=== PATIENT | male | born 1990 | race Caucasian/White ===

== ENCOUNTER 2017-12-22 11:59 | Emergency (ER) | payer MEDICAID, OTHER ==
[~2017-12-22] VITALS: Ht 175.3 cm; Wt 65.9 kg
[2017-12-22 12:42] LABS: CLARITY,URINE CLOUDY (Clear); COLOR,URINE RED (Yellow); GLUCOSE, URINE NEGATIVE (Neg); KETONES,URINE TRACE mg/dl (Neg); LEUKOCYTE ESTERASE ,URINE NEGATIVE (Neg); NITRITES, URINE NEGATIVE (Neg); OCCULT BLOOD,URINE LARGE (Neg); PH,URINE 8.5 (4.8-8.0); PROTEIN,URINE 30 mg/dl (Neg); UA COLLECTION TYPE VOIDED; UROBILINOGEN,URINE 0.2 E.U/dL (0.2-1.0)
[2017-12-22] MEDS ORDERED: morphine 4 MG/ML inj SYRINge IV PRN (12:45)
[2017-12-22] MEDS ORDERED: ondansetron/PF 4mg/2ml inj IV ONE (12:45)
[2017-12-22] MEDS ORDERED: normal saline 1000ML IV soln IVB ONE (12:45)
[2017-12-22] MEDS ORDERED: ketorolac trometh. 30mg/ml inj. IV ONE (12:45)
[2017-12-22 12:49] LABS: BACTERIA,URINE NONE SEEN /HPF (Neg); MUCUS STRANDS NONE SEEN /LPF (Neg); RBC,URINE TNTC /HPF (0-2); SQUAMOUS EPITHELIAL CELL,UR NONE SEEN /LPF (FEW)
[2017-12-22 13:06] LABS: BASOPHILS % (AUTO) 0.4 % (0-1); EOSINOPHILS # (AUTO) 0.1 X10'3 (0-0.9); EOSINOPHILS % (AUTO) 0.7 % (0-6); HEMATOCRIT 44.3 % (42.0-52.0); HEMOGLOBIN 15.2 g/dl (14.0-17.9); LYMPHOCYTES # (AUTO) 1.2 X10'3 (1.1-4.8); LYMPHOCYTES % (AUTO) 11.3 % (21-51); MEAN CORPUSCULAR HEMOGLOBIN 30.6 PG (27.0-31.0); MEAN CORPUSCULAR HGB CONC 34.3 % (33.0-36.5); MEAN CORPUSCULAR VOLUME 89.2 FL (78-98); MEAN PLATELET VOLUME 7.4 FL (7.4-10.4); MONOCYTES # (AUTO) 0.6 X10'3 (0-0.9); MONOCYTES % (AUTO) 5.7 % (2-12); NEUTROPHILS # (AUTO) 8.9 X10'3 (1.8-7.7); NEUTROPHILS % (AUTO) 81.9 % (42-75); PLATELET COUNT 325 X10'3 (140-440); RED BLOOD COUNT 4.96 X10'6 (4.70-6.10); RED CELL DISTRIBUTION WIDTH 12.7 % (11.5-14.5); WHITE BLOOD COUNT 10.9 X10'3 (4.5-11.0)
[2017-12-22 13:20] LABS: ALANINE AMINOTRANSFERASE 29 U/L (12-78); ALKALINE PHOSPHATASE 74 IU/L (46-116); ANION GAP 14 (8-16); ASPARTATE AMINO TRANSFERASE 29 U/L (10-37); BILIRUBIN,TOTAL 0.4 MG/DL (0.1-1.0); BLOOD UREA NITROGEN 16 MG/DL (7-18); CHLORIDE 102 MMOL/L (99-107); CREATININE 1.14 MG/DL (0.60-1.10); GLUCOSE 127 MG/DL (70-104); LIPASE 150 U/L (73-393); POTASSIUM 3.6 MMOL/L (3.5-5.1); SODIUM 140 MMOL/L (135-145); TOTAL CARBON DIOXIDE 24.1 MMOL/L (24-32); TOTAL PROTEIN 8.1 G/DL (6.4-8.2); eGFR 77 ML/MIN
[2017-12-22] MEDS ORDERED: IBUP-1984 PO (13:40)
[2017-12-22] MEDS ORDERED: HYDR-568 PO (13:40)
[2017-12-22] MEDS ORDERED: morphine 4 MG/ML inj SYRINge IV ONE (13:45)
[2017-12-22 14:45] VITALS: BP 112/68
== END 2017-12-22 14:49 | disposition home or self-care (01) ==
LOC: ER 12:00
DX: N20.1 Calculus of ureter (principal); F17.200 Nicotine dependence, unspecified, uncomplicated; F12.90 Cannabis use, unspecified, uncomplicated
CPT/HCPCS: 36415; 74176; 80053; 81001; 83690; 85025; 87088; 96361; 96374; 96375; 96376; 99285; J1885; J2270; J2405; J7030

== ENCOUNTER 2018-07-06 21:13 | Emergency (ER) | payer MEDICAID ==
[~2018-07-06] VITALS: Ht 175.3 cm; Wt 57.0 kg
[~2018-07-06 21:13] MED LIST: KETO10TA2 PO; TADA20TA PO
[2018-07-06 21:18] VITALS: BP 131/83
--- NOTE | 2018-07-06 22:03 | NUR ---
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
--- NOTE | 2018-07-06 22:31 | NUR ---
PT MOVED TO ROOM 11, REPORT TO USHA CROWDER, PLATE SETTER AT BEDSIDE
[2018-07-06] MEDS ORDERED: CEPH500C5 PO (23:11)
[2018-07-06] MEDS ORDERED: cephalexin 250mg capsule PO ONE (23:25)
== END 2018-07-06 23:33 | disposition home or self-care (01) ==
LOC: ER 21:14
DX: R22.1 Localized swelling, mass and lump, neck (principal); F12.90 Cannabis use, unspecified, uncomplicated
CPT/HCPCS: 76536; 99284

== ENCOUNTER 2019-05-02 10:34 | Emergency (ER) | payer MEDICAID, OTHER ==
[~2019-05-02] VITALS: Ht 172.7 cm; Wt 66.0 kg
[2019-05-02 11:16] VITALS: BP 112/78
[2019-05-02] MEDS ORDERED: HYDROcodone/acetaminophen 10/325mg tab PO ONE (12:05)
[2019-05-02] MEDS ORDERED: PENI500T2 PO (12:12)
== END 2019-05-02 12:23 | disposition home or self-care (01) ==
LOC: ER 10:35
DX: K02.9 Dental caries, unspecified (principal); F10.99 Alcohol use, unspecified with unspecified alcohol-induced disorder; F12.90 Cannabis use, unspecified, uncomplicated; Z98.890 Other specified postprocedural states; Z87.442 Personal history of urinary calculi; Z79.899 Other long term (current) drug therapy; Y90.9 Presence of alcohol in blood, level not specified
CPT/HCPCS: 99283

== ENCOUNTER 2020-01-26 11:07 | Emergency (ER) | payer MEDICAID, OTHER ==
[~2020-01-26] VITALS: Ht 170.2 cm; Wt 80.0 kg
[2020-01-26 11:25] VITALS: BP 125/59
[2020-01-26] MEDS ORDERED: HYDROcodone/acetaminophen 5mg/325mg tablet PO ONE (12:25)
[2020-01-26] MEDS ORDERED: ondansetron 4mg rapidly disintigrating tab PO ONE (12:25)
[2020-01-26] MEDS ORDERED: TRAM1TAB7 PO (12:29)
--- NOTE | 2020-01-26 12:52 | NUR ---
ADMIN MEDICATION ORDERED. GIVE PT ONE CRUTCH REQUESTED. PT HAS HAD THEM BEORE.
== END 2020-01-26 12:57 | disposition home or self-care (01) ==
LOC: ER 11:07
DX: S83.8X1A Sprain of other specified parts of right knee, initial encounter (principal); N20.0 Calculus of kidney; F12.10 Cannabis abuse, uncomplicated; V00.131A Fall from skateboard, initial encounter; Y93.89 Activity, other specified; Y92.89 Other specified places as the place of occurrence of the external cause; Y99.8 Other external cause status
CPT/HCPCS: 73564; 99283

== ENCOUNTER 2020-10-19 18:58 | Emergency (ER) | payer OTHER ==
[~2020-10-19] VITALS: Ht 172.7 cm; Wt 70.0 kg
[2020-10-19 19:23] VITALS: BP 114/65
[2020-10-19] MEDS ORDERED: TETanus/Pertussis (Acell)/Diphther VAC/PF (Tdap-Adult) 0.5ml syringe IMVAC ONE (19:55)
== END 2020-10-19 20:43 | disposition home or self-care (01) ==
LOC: ER 18:58
DX: S61.231A Puncture wound without foreign body of left index finger without damage to nail, initial encounter (principal); F12.90 Cannabis use, unspecified, uncomplicated; Z20.3 Contact with and (suspected) exposure to rabies; Z87.442 Personal history of urinary calculi; Z98.890 Other specified postprocedural states; Z72.89 Other problems related to lifestyle; Z79.899 Other long term (current) drug therapy; X58.XXXA Exposure to other specified factors, initial encounter; Y93.89 Activity, other specified; Y92.89 Other specified places as the place of occurrence of the external cause; Y99.8 Other external cause status
CPT/HCPCS: 90471; 90715; 99283

== ENCOUNTER 2024-07-07 19:05 | Emergency (ER) | payer MEDICAID ==
[~2024-07-07] VITALS: Ht 175.3 cm; Wt 67.0 kg
[2024-07-07] MEDS: ibuprofen tablet 400 MG TABLET PO ONE (19:25)
[2024-07-07 22:21] VITALS: BP 126/70; PULSE 85; RESP 18; TEMP 98.6; O2SAT 99
== END 2024-07-07 22:22 | disposition home or self-care (01) ==
LOC: ER 19:06
DX: S00.83XA Contusion of other part of head, initial encounter (principal); F12.90 Cannabis use, unspecified, uncomplicated; Z87.440 Personal history of urinary (tract) infections; Z98.890 Other specified postprocedural states; Y08.89XA Assault by other specified means, initial encounter; Y93.89 Activity, other specified; Y92.89 Other specified places as the place of occurrence of the external cause; Y99.0 Civilian activity done for income or pay
CPT/HCPCS: 70450; 70486; 99284

== ENCOUNTER 2024-11-18 09:38 | Emergency (ER) | payer MEDICAID ==
[~2024-11-18] VITALS: Ht 175.3 cm; Wt 65.9 kg
[2024-11-18 09:41] VITALS: BP 115/64; PULSE 61; RESP 18; TEMP 98.5; O2SAT 99
--- NOTE | 2024-11-18 12:41 | Physician Documentation ---
History of Present Illness ~ Chief Complaint: Knee Pain Stated Complaint: LEFT KNEE PAIN Time Seen by MD: 09:44 Primary Medical Doctor: YUSUF SHAY Patient is seen today with complaints of left-sided knee pain acute in nature states he feels some pressure with ambulation. Patient states he tore his ACL in the right knee previously and is extra cautious about his left knee. Patient denies any specific injury and has no other concern or complaint at this time. Tetanus witin 5 years: Yes Medication Reconciliation Allergies: Coded Allergies: No Known Allergies (Unverified , 11/18/24) Scheduled Ketorolac Tromethamine (Ketorolac Tromethamine), 1 TAB PO Q8H Tadalafil (Cialis), 1 TAB PO DAILY Past Medical History Past Medical History: Kidney Stones, Extremity Fracture Past Surgical History: orthopedic surgeries Alcohol Use: Occasionally Drug Use: marijuana Lives with: Family Lives In: Home Review of Systems Constitutional: Denies: chills, fever, weakness Eyes: Denies: pain, blurred vision ENT: Denies: ear pain, nose pain, throat pain, mouth pain Respiratory: Denies: cough, shortness of breath Cardiovascular: Denies: chest pain, palpitations Gastrointestinal: Denies: abdominal pain, nausea, vomiting Genitourinary: Denies: burning, dysuria Male Genitalia: Denies: penile discharge, testicular pain Neurological: Denies: headache, dizziness Musculoskeletal: Denies: pain, swelling Integumentary: Denies: rash, lesions Allergic/Immunologic: Denies: hives, itching Hematologic/Lymphatic: Denies: no symptoms reported Psychiatric: Denies: depression, anxiety Physical Exam Vital Signs: Temperature: 98.5, Source: Temporal, Heart Rate: 61, Respiratory Rate: 18, BP: 115/64, Pulse Oximetry: 99, Weight: 65.910 Oxygen Flow Rate: 0 Physical Exam General: Awake and Alert, no acute distress. HEENT: Conjunctiva pink, Sclera clear, Mucus Membranes moist. Neck: Supple without masses and tenderness. Resp: Unlabored. Lungs clear to auscultation bilaterally. Heart: Regular Rate and rhythm, normal S1 and S2 without murmur, rub or gallop. Musculoskeletal: Patient on exam has no significant swelling or tenderness to palpation of the left knee, Jarret's test and Ryley tests are negative. I do not appreciate any laxity when stressing through the LCL and MCL ligaments. Patient is neurovascularly intact distally, strength and motor function intact distally. Extremities: No cyanosis,clubbing or edema. Skin: Warm and Dry. Progress Results/Orders Results/Orders Orders - MAXINELORENA SONG Knee, Complete (11/18/24 10:03) Completed Orders - LORENA GOODMAN Knee, Complete (11/18/24 10:03) Vital Signs 11/18/24 09:41 Temp 98.5 Pulse 61 Resp 18 B/P (MAP) 115/64 Pulse Ox 99 O2 Flow Rate 0 EKG/XRAY/CT/US/VASC/MRI Bone/Soft Tissue X-Ray (Ext.) : Additional Comment X-ray of left knee interpreted by myself today shows no sign of acute fracture, bones in anatomic alignment, joint space well maintained. Medical Decision Making Findings Patient is seen today with complaints of left-sided knee pain acute in nature states he feels some pressure with ambulation. Patient states he tore his ACL in the right knee previously and is extra cautious about his left knee. Patient denies any specific injury and has no other concern or complaint at this time. X-rays of left knee showed no sign of acute fracture or acute pathology. Patient will continue activity level as tolerated. Prescription of Tylenol and ibuprofen sent to patient's pharmacy to be used as directed. Patient will follow up with primary care in 3-5 days if no better for further eval and treatment. Return to ED with any worsening, concerning or changing symptoms. Patient stated he was in a very big hurry and declined waiting around four the official radiology report. Departure Disposition: HOME / SELF CARE / HOMELESS Impression: Primary Impression: Knee pain Qualified Codes: M25.562 - Pain in left knee Condition: Stable Discharge Instructions: Acute Knee Pain, Adult Additional Instructions: X-rays of left knee showed no sign of acute fracture or acute pathology. Patient will continue activity level as tolerated. Prescription of Tylenol and ibuprofen sent to patient's pharmacy to be used as directed. Patient will follow up with primary care in 3-5 days if no better for further eval and treatment. Return to ED with any worsening, concerning or changing symptoms. Referrals: NO PRIMARY CARE PROVIDER (PCP) Signature Scribe Signature: No scribe Attestation: No scribe LORENA GOODMAN Nov 18, 2024 12:41
--- NOTE | 2024-11-18 18:54 | RADIOLOGY REPORT ---
CLINICAL INDICATION: knee pain LT. TECHNIQUE: 3 radiographic views of the left knee were obtained. Comparison: KNEE, COMP 4 VW MIN on DOS: 01/26/20 FINDINGS/IMPRESSION: There is no evidence of acute fracture or dislocation. The visualized joint space is well maintained. The alignment is anatomical. There is no radiopaque foreign body.
== END 2024-11-18 12:57 | disposition home or self-care (01) ==
LOC: ER 09:38
DX: M25.562 Pain in left knee (principal); F12.90 Cannabis use, unspecified, uncomplicated; Z79.899 Other long term (current) drug therapy; Z72.89 Other problems related to lifestyle; Z87.442 Personal history of urinary calculi
CPT/HCPCS: 73564; 99283